=== PATIENT | male | born 1965 | race Hispanic/Latino ===

== ENCOUNTER 2020-02-25 09:44 | Inpatient (IN) | payer OTHER ==
[~2020-02-25] VITALS: Ht 188 cm; Wt 124.3 kg
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
--- NOTE | 2020-02-25 10:49 | Diagnostic Imaging Report ---
EXAMINATION: FINGER LT - HOPD INDICATION: Cellulitis COMPARISON: None FINDINGS: No acute fracture or dislocation. Mild soft tissue swelling of the fifth digit. No specific findings of osteomyelitis. IMPRESSION: Soft tissue swelling of the fifth digit without underlying acute osseous injury or specific findings of osteomyelitis. Signed by: Riaz De La Cruz MD on 02/25/2020 10:45 AM
[2020-02-25] MEDS ORDERED: CARVEDILOL12.5 MG PO (10:57)
[2020-02-25] MEDS ORDERED: VASOTEC10 M1 PO (10:57)
[2020-02-25] MEDS ORDERED: LOVASTATIN40 MG PO (10:57)
[2020-02-25] MEDS ORDERED: ASPIR 8181 MG PO (10:57)
[2020-02-25] MEDS ORDERED: HYDROCHLOROTHIA25 MG PO (10:57)
[2020-02-25] MEDS ORDERED: ONDANSETRON HCL INJ 2MG/ML 2ML 2 MG/ML VIAL IV PRN ×2 (11:45→21:45)
[2020-02-25] MEDS ORDERED: MORPHINE SULFATE 2 MG/ML SYR 1ML IV PRN (11:50)
[2020-02-25] MEDS ORDERED: HYDROCODONE/APAP 10MG-325MG TAB PO PRN (12:00)
[2020-02-25] MEDS ORDERED: MORPHINE SULFATE INJ 4 MG/ML INJ 1ML IV PRN (12:00)
[2020-02-25] MEDS ORDERED: PIPER-TAZ 3.375 GM 50 ML ONE (12:00)
[2020-02-25] MEDS: PIPER-TAZ 3.375 GM 50 ML IV SCH ×2 (12:06→20:00)
[2020-02-25] MEDS ORDERED: HYDROCODONE/APAP 5MG-325MG TAB ONE (12:15)
[2020-02-25] MEDS ORDERED: VANCOMYCIN 1GM/NS 250 ML 250 ML IV ONE (12:30)
--- OUTSIDE RECORDS SUMMARY | 2020-02-25 12:32 | XMS REPORT ---
Author Author [facility] t Organization [facility] Address [address] [place] [address] [place] [id number] Phone Unavailable Care Team Providers Care Land Degradation Analyst Name Role Phone Marya VALDEZ Unavailable Problems This patient has no known problems. Allergies, Adverse Reactions, Alerts This patient has no known allergies or adverse reactions. Medications This patient has no known medications. Procedures This patient has no known procedures. Results Test Description Test Time Test Comments Results Result Comments Source FINGER LT - HOPD 2020-02-25 10:44:00 [place] [address] Patient Name: ODILIA SILVER MR #: [id number] : 1965 Age/Sex: 54/M Req #: [id number] Adm Physician: Ordered by: MARISEL VALDEZ MD Report #: [id number] Location: [facility] Room/Bed: Procedure: [id number] HOPD/FINGER LT - HOPD Exam Date: 02/25/20 Exam Time: 1040 REPORT STATUS: Signed EXAMINATION: FINGER LT - HOPD INDICATION: Cellulitis COMPARISON: None FINDINGS: No acute fracture or dislocation. Mild soft tissue swelling of the fifth digit. No specific findings of osteomyelitis. IMPRESSION: Soft tissue swelling of the fifth digit without underlying acute osseous injury or specific findings of osteomyelitis. Signed by: Kavitha Aragon MD on 02/25/2020 10:45 AM Dictated By: KAVITHA ARAGON MD 104 Transcribed By: CRISTINA on 02/25/201044 COPY TO: MARISEL VALDEZ MD
[2020-02-25] MEDS: CLINDAMYCIN 600MG / 50ML 50 ML IV SCH ×2 (13:03→18:35)
[2020-02-25] MEDS ORDERED: CLINDAMYCIN 600MG / 50ML 50 ML IV ONE (13:09)
[2020-02-25] MEDS ORDERED: SODIUM CHLORIDE 0.9% 250ML 250 ML ONE (15:13)
[2020-02-25 15:29] VITALS: BP 129/102
[2020-02-25 16:26] VITALS: BP 137/84
[2020-02-25] MEDS: HYDROMORPHONE 1MG/1ML INJ IV PRN ×2 (18:35→22:57)
[2020-02-25 20:00] VITALS: BP 134/86
[2020-02-25 21:14] VITALS: BP 134/86
[2020-02-25] MEDS ORDERED: DOCUSATE SODIUM 100 MG CAP PO PRN (21:45)
[2020-02-25] MEDS ORDERED: ZOLPIDEM TARTRATE 5 MG TAB PO PRN (21:45)
[2020-02-25] MEDS ORDERED: ACETAMINOPHEN 325 MG TAB PO PRN (21:45)
[2020-02-26] VITALS (8 sets, daily range): BP systolic 102–147; BP diastolic 80–115
[2020-02-26] MEDS: PIPER-TAZ 3.375 GM 50 ML IV SCH ×2 (02:45→09:16)
[2020-02-26 05:30] LABS: BASOPHILS % 0.6 % (0.0-1.0); EOSINOPHILS # (AUTO) 0.3 (0.0-0.4); EOSINOPHILS % 4.1 % (0.0-6.0); HEMATOCRIT 40.9 % (38.2-49.6); HEMOGLOBIN 13.4 g/dL (14.0-18.0); LYMPHOCYTES # (AUTO) 1.9 (1.0-3.2); LYMPHOCYTES % 26.3 % (18.0-39.1); MEAN CORPUSCULAR HEMOGLOBIN 31.3 pg (28-32); MEAN CORPUSCULAR HGB CONC 32.8 g/dL (31-35); MEAN CORPUSCULAR VOLUME 95.6 fL (81-99); MONOCYTES # (AUTO) 0.9 (0.2-0.8); MONOCYTES % 12.5 % (4.4-11.3); NEUTROPHILS # (AUTO) 3.9 (2.1-6.9); NEUTROPHILS % 55.9 % (38.7-80.0); PLATELET COUNT 197 x10e3/uL (140-360); RED BLOOD COUNT 4.28 x10e6/uL (4.3-5.7); RED CELL DISTRIBUTION WIDTH 12.6 % (11.7-14.4)
[2020-02-26 05:44] LABS: ANION GAP 12.9 mmol/L (8-16); CALCIUM 8.7 mg/dL (8.4-10.2); CHOL/HDL RATIO 3.8 (3.9-4.7); CREATININE, SERUM 1.28 mg/dL (0.72-1.25); MAGNESIUM 2.3 MG/DL (1.3-2.1); POTASSIUM 3.9 mmol/L (3.5-5.1)
[2020-02-26] MEDS: HYDROMORPHONE 1MG/1ML INJ IV PRN ×4 (06:00→20:58)
[2020-02-26] MEDS: CLINDAMYCIN 600MG / 50ML 50 ML IV SCH ×2 (06:19)
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
[2020-02-26] MEDS ORDERED: TETANUS/DIPHTHERIA TOX ADULT 0.5 ML SYR IM ONE ×2 (11:45→17:00)
[2020-02-26] MEDS ORDERED: AMPICILLIN SOD/SULBACTAM 3GM 100 ML IV SCH ×2 (12:00→18:00)
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
[2020-02-26] MEDS ORDERED: GADOBENATE DIMEGLUMINE 1 ML IV ONE (13:18)
[2020-02-26] MEDS ORDERED: VANCOMYCIN 1GM/NS 250 ML 250 ML IV SCH (15:00)
--- NOTE | 2020-02-26 17:01 | Diagnostic Imaging Report ---
TECHNIQUE: Magnetic resonance imaging of the left finger was performed without and with injected contrast. HISTORY: Pain COMPARISON: None. FINDINGS: Soft tissue defects involving the dorsal surface of the ring finger at the level of the middle and distal phalanges with sinus tract extending to bone with surrounding small abscesses. Bone marrow edema and T1 replacement involving the middle and distal phalanx. Mild tenosynovitis of the flexor tendon sheath to the small finger. The flexor tendons have normal insertions. The central slip of the extensor tendon has normal insertion on the middle phalanx, however the lateral slips extending to the terminal tendon are not well visualized inserting on the distal phalanx. IMPRESSION: Osteomyelitis of the middle and distal phalanges of the small finger with overlying small abscesses and cellulitis. Possible disruption of the extensor lateral slips and terminal tendon. The extensor central slip and flexor tendons are intact. Signed by: Dr. Jeff Bryson M.D. on 02/26/2020 4:58 PM
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
[2020-02-26] MEDS: AMPICILLIN SOD/SULBACTAM 3GM 100 ML IV SCH (20:57)
[2020-02-27] VITALS (8 sets, daily range): BP systolic 128–154; BP diastolic 78–102
[2020-02-27] MEDS: HYDROMORPHONE 1MG/1ML INJ IV PRN ×3 (02:02→18:52)
[2020-02-27] MEDS: AMPICILLIN SOD/SULBACTAM 3GM 100 ML IV SCH ×4 (02:02→20:25)
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
--- NOTE | 2020-02-27 07:30 | NUR ---
OFF UNIT TO OR
[2020-02-27] MEDS ORDERED: BUPIVACAINE HCL 0.5% INJ 30 ML VIAL INJ ONE (08:15)
[2020-02-27] MEDS ORDERED: BACITRACIN 50,000 UNIT VIAL ONE (08:15)
[2020-02-27] MEDS ORDERED: MUPIROCIN 2% OINT 22 GM TUBE ONE (08:15)
[2020-02-27] MEDS ORDERED: LABETALOL HCL 20 ML ONE (09:24)
--- NOTE | 2020-02-27 10:00 | NUR ---
BACK FROM SURGERY DAUGHTER AT BEDSIDE. DENIES DISCOMFORT, STATES HE DOESN'T REMEMBER ANYTHING ABOUT THE SURGERY, OFFERED AND ACCEPTED SPRITE LIKE SODA. FINGERTIP SLIGHTLY DISCOLORED DRESSING CDI WILL CONT TO MONITOR. BP STILL ELEVATED MD AWARE
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
--- NOTE | 2020-02-27 20:20 | NUR ---
PATIENT RESTING IN BED AOX4, NO SIGNS OF DISTRESS NOTED. PATIENT VOICES PAIN AT A LEVEL OF 5 AND WAS PREVIOUSLY MEDICATED ORDERED. IV ANTIBIOTICS ARE RUNNING AT ORDERED RATE. BED IS IN LOW POSITION, SIDE RAILS ARE UP, CALL LIGHT IS WITHIN REACH, WILL CONTINUE MONITOR.
[2020-02-28] VITALS (10 sets, daily range): BP systolic 104–141; BP diastolic 67–97
[2020-02-28] MEDS: AMPICILLIN SOD/SULBACTAM 3GM 100 ML IV SCH ×4 (01:10→20:02)
[2020-02-28] MEDS: HYDROMORPHONE 1MG/1ML INJ IV PRN ×4 (01:10→22:20)
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
[2020-02-28 18:42] LABS: BASOPHILS % 0.4 % (0.0-1.0); EOSINOPHILS # (AUTO) 0.2 (0.0-0.4); EOSINOPHILS % 1.8 % (0.0-6.0); HEMOGLOBIN 13.6 g/dL (14.0-18.0); LYMPHOCYTES # (AUTO) 2.4 (1.0-3.2); LYMPHOCYTES % 28.7 % (18.0-39.1); MEAN CORPUSCULAR HGB CONC 33.2 g/dL (31-35); MEAN CORPUSCULAR VOLUME 96.5 fL (81-99); MONOCYTES # (AUTO) 0.9 (0.2-0.8); NEUTROPHILS # (AUTO) 4.7 (2.1-6.9); NEUTROPHILS % 57.5 % (38.7-80.0); PLATELET COUNT 221 x10e3/uL (140-360); RED BLOOD COUNT 4.25 x10e6/uL (4.3-5.7); RED CELL DISTRIBUTION WIDTH 12.6 % (11.7-14.4)
[2020-02-28 19:01] LABS: ANION GAP 13.8 mmol/L (8-16); CALCIUM 8.6 mg/dL (8.4-10.2); CREATININE, SERUM 1.3 mg/dL (0.72-1.25); POTASSIUM 3.8 mmol/L (3.5-5.1)
[2020-02-29] VITALS (8 sets, daily range): BP systolic 131–162; BP diastolic 85–110
[2020-02-29] MEDS: AMPICILLIN SOD/SULBACTAM 3GM 100 ML IV SCH ×4 (02:02→21:50)
[2020-02-29] MEDS: HYDROCHLOROTHIAZIDE 25 MG TAB PO SCH (08:52)
[2020-02-29] MEDS: ASPIRIN 81 MG ENTERIC COATED PO SCH (08:52)
[2020-02-29] MEDS ORDERED: ENALAPRIL MALEATE 10 MG TAB PO ONE (09:00)
[2020-02-29] MEDS ORDERED: CARVEDILOL 12.5 MG TAB PO ONE (09:00)
[2020-02-29] MEDS: HYDROMORPHONE 1MG/1ML INJ IV PRN ×4 (09:39→22:45)
--- NOTE | 2020-02-29 12:23 | NUR ---
WOUND CARE CONSULT F/U POST SURG LEFT HAND 5TH FINGER DRESSING REMOVED WOUND CLEANED WITH N S PACKING REMOVED DRESSING REAPPLIED PER MD ORDER Addendum: 02/29/20 at 1226 by Chavo Varghese RN Amended: Links added.
[2020-02-29] MEDS ORDERED: BACITRACIN ZINC 15 GM OINT TOP SCH (14:00)
--- NOTE | 2020-02-29 16:19 | NUR ---
Spoke with Dr. Guevara regarding plan. States one more day of IV abx, anticipate dc tomorrow.
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
[2020-02-29] MEDS ORDERED: SIMVASTATIN 20 MG TAB PO SCH (21:00)
[2020-03-01] VITALS: BP 173/117
--- NOTE | 2020-03-01 00:45 | NUR ---
NOTIFIED DR BANKS ABOUT HIGH BP. NEW ORDER RECEIVED.
[2020-03-01] MEDS ORDERED: CARVEDILOL 12.5 MG TAB PO ONE (01:00)
[2020-03-01] MEDS: AMPICILLIN SOD/SULBACTAM 3GM 100 ML IV SCH ×2 (02:32→08:00)
[2020-03-01 04:00] VITALS: BP 164/116
[2020-03-01] MEDS: HYDROMORPHONE 1MG/1ML INJ IV PRN (05:59)
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
[2020-03-01 07:32] LABS: ANION GAP 12.2 mmol/L (8-16); BLOOD UREA NITROGEN 18 mg/dL (7-26); BUN/CREATININE RATIO 19 (6-25); CARBON DIOXIDE 26 mmol/L (22-29); CHLORIDE 104 mmol/L (98-107); CREATININE, SERUM 0.95 mg/dL (0.72-1.25); EST GLOMERULAR FILTRATION RATE > 60 ML/MIN (60-); GLUCOSE 115 mg/dL (74-118); POTASSIUM 4.2 mmol/L (3.5-5.1); SODIUM 138 mmol/L (136-145)
[2020-03-01 07:53] VITALS: BP 164/116
[2020-03-01] MEDS: ASPIRIN 81 MG ENTERIC COATED PO SCH (08:14)
[2020-03-01] MEDS: HYDROCHLOROTHIAZIDE 25 MG TAB PO SCH (08:15)
[2020-03-01 08:28] VITALS: BP 157/115
--- NOTE | 2020-03-01 08:33 | NUR ---
Dr. Guevara said he will call in prescription for pain medication
[2020-03-01] MEDS ORDERED: CARVEDILOL 12.5 MG TAB PO SCH ×2 (09:00)
[2020-03-01] MEDS ORDERED: ENALAPRIL MALEATE 10 MG TAB PO SCH (09:00)
[2020-03-01] MEDS ORDERED: LEVAQUIN500 MG PO (12:55)
--- NOTE | 2020-03-01 13:00 | NUR ---
Discharge instructions and prescription given to the patient. He verbalized understanding. He verbalized understanding of how to care for sutures. IV removed from the right AC with tip intact.
== END 2020-03-01 13:15 | disposition home or self-care (01) | DRG 506 ==
LOC: FSED 09:44 → ERHOLD 11:41 → MED/SURG2 14:50
PROVIDERS: ADMIT Internal Medicine; ATTEND Internal Medicine
PROC: 0L980ZZ Drainage of Left Hand Tendon, Open Approach (ICD-10-PCS; 2020-02-27)
PROC: 0R9X0ZZ Drainage of Left Finger Phalangeal Joint, Open Approach (ICD-10-PCS; principal; 2020-02-27 08:00)
DX: M86.142 Other acute osteomyelitis, left hand (principal); L03.114 Cellulitis of left upper limb; M00.242 Other streptococcal arthritis, left hand; N17.9 Acute kidney failure, unspecified; S61.257A Open bite of left little finger without damage to nail, initial encounter; I10 Essential (primary) hypertension; E78.5 Hyperlipidemia, unspecified; I25.10 Atherosclerotic heart disease of native coronary artery without angina pectoris; Y04.1XXA Assault by human bite, initial encounter; Z95.5 Presence of coronary angioplasty implant and graft; I25.2 Old myocardial infarction; Y93.89 Activity, other specified; Y92.89 Other specified places as the place of occurrence of the external cause; B95.4 Other streptococcus as the cause of diseases classified elsewhere; S63.637A Sprain of interphalangeal joint of left little finger, initial encounter; Z87.891 Personal history of nicotine dependence; E66.9 Obesity, unspecified; Z68.35 Body mass index [BMI] 35.0-35.9, adult; R73.03 Prediabetes
CPT/HCPCS: 36415; 80048; 80053; 80061; 83036; 83735; 84100; 85025; 87071; 87205; 87635; 90714; 99251; 99284; J0295; J1170; J2270; J2405; J2543; J3370; J7050